=== PATIENT | female | born 1975 | race Caucasian/White ===

== ENCOUNTER 2021-02-28 09:50 | Outpatient (CLI) | payer OTHER | END 2021-02-28 09:51 | disposition home or self-care (01) | LOC: BICULT 09:50 | PROVIDERS: ATTEND Nurse Practitioner Family | DX: N32.81 Overactive bladder (principal); R32 Unspecified urinary incontinence; R82.90 Unspecified abnormal findings in urine; R82.79 Other abnormal findings on microbiological examination of urine; C53.9 Malignant neoplasm of cervix uteri, unspecified; R93.421 Abnormal radiologic findings on diagnostic imaging of right kidney; N32.89 Other specified disorders of bladder | CPT/HCPCS: 76770 ==

== ENCOUNTER 2021-08-13 11:29 | Emergency (ER) | payer OTHER, SELFPAY ==
[~2021-08-13 11:29] MED LIST: Iopamidol-370 76% 500 ML 1 ML ONE
[2021-08-13 12:54] LABS: #Eosinphils 0.1 thou/uL (0.0-0.7); #Lymphocytes 1.7 thou/uL (1.20-3.40); #Monocytes 0.6 thou/uL (0.11-0.59); #Neutrophils 7.7 thou/uL (1.40-6.50); %Basophils 0.2 % (0.0-1.0); %Eosinophils 1.2 % (0.0-10.0); %Lymphocytes 16.9 % (21.0-51.0); %Monocytes 5.7 % (0.0-10.0); %Neutrophils 76.1 % (42.0-75.0); Hemoglobin 11.5 g/dL (12.0-16.0); Mean Corpuscular HGB CONC 32.3 g/dL (32.0-36.0); Mean Corpuscular Volume 89.7 fL (78.0-98.0); Mean Platelet Volume 6.7 fL (7.4-10.4); Platelet Count 484 thou/uL (130-400); RBC Distribution Width 12.6 % (11.5-14.5); Red Blood Cell (RBC) Count 3.97 mill/uL (4.20-5.40); White Blood Cell (WBC) Count 10.1 thou/uL (4.8-10.8)
[2021-08-13 13:13] LABS: ALT (SGPT) 7 U/L (8-55); AST (SGOT) 7 U/L (5-34); Albumin 3.7 g/dL (3.5-5.0); Alkaline Phosphatase 85 U/L (40-110); Anion Gap 13 mmol/L (10-20); BUN (Urea Nitrogen) 14 mg/dL (7.0-18.7); Bilirubin, Total 0.2 mg/dL (0.2-1.2); Calc. Creatinine Clearance 0 mL/min (70-130); Calcium 9.6 mg/dL (7.8-10.44); Carbon Dioxide 17 mmol/L (22-29); Chloride 110 mmol/L (98-107); Globulin 3.2 g/dL (2.4-3.5); Glucose 90 mg/dL (70-105); Potassium 3.8 mmol/L (3.5-5.1); Protein, Total 6.9 g/dL (6.0-8.3); Sodium 136 mmol/L (136-145)
[2021-08-13] MEDS ORDERED: Hydrocortisone Acetate 25 MG Suppository PR SCH (13:15)
[2021-08-13 13:42] LABS: PTT 33.2 sec (22.9-36.1); Prothrombin Time 13.7 sec (12.0-14.7)
== END 2021-08-13 17:25 | disposition home or self-care (01) ==
LOC: ERS 11:29
DX: K62.5 Hemorrhage of anus and rectum (principal); R19.00 Intra-abdominal and pelvic swelling, mass and lump, unspecified site; Z87.891 Personal history of nicotine dependence
CPT/HCPCS: 36415; 74177; 80053; 85025; 85610; 85730; 86850; 86900; 86901; 93005; Q9967

== ENCOUNTER 2021-08-15 11:16 | Inpatient (IN) | payer SELFPAY ==
[2021-08-15] MEDS ORDERED: Ondansetron PF 4 MG/2 ML Vial ONE ×3 (12:13→16:16)
[2021-08-15] MEDS ORDERED: Morphine 4 MG/ML VIAL ONE (12:13)
[2021-08-15 12:26] LABS: #Eosinphils 0.2 thou/uL (0.0-0.7); #Lymphocytes 1.6 thou/uL (1.20-3.40); #Monocytes 0.7 thou/uL (0.11-0.59); #Neutrophils 8.5 thou/uL (1.40-6.50); %Basophils 0.4 % (0.0-1.0); %Eosinophils 1.8 % (0.0-10.0); %Lymphocytes 14.5 % (21.0-51.0); %Monocytes 6.3 % (0.0-10.0); Hemoglobin 10.8 g/dL (12.0-16.0); Mean Corpuscular HGB CONC 32.7 g/dL (32.0-36.0); Mean Corpuscular Hemoglobin 28.4 pg (27.0-31.0); Mean Corpuscular Volume 86.9 fL (78.0-98.0); Mean Platelet Volume 6.8 fL (7.4-10.4); Platelet Count 475 thou/uL (130-400); RBC Distribution Width 12.6 % (11.5-14.5)
[2021-08-15 12:45] LABS: ALT (SGPT) 8 U/L (8-55); AST (SGOT) 6 U/L (5-34); Albumin 3.6 g/dL (3.5-5.0); Alkaline Phosphatase 87 U/L (40-110); Anion Gap 15 mmol/L (10-20); BUN (Urea Nitrogen) 15 mg/dL (7.0-18.7); Bilirubin, Total 0.2 mg/dL (0.2-1.2); CK (CPK) 26 U/L (29-168); Calc. Creatinine Clearance 0 mL/min (70-130); Calcium 9.6 mg/dL (7.8-10.44); Carbon Dioxide 18 mmol/L (22-29); Chloride 110 mmol/L (98-107); Globulin 3.2 g/dL (2.4-3.5); Glucose 102 mg/dL (70-105); Potassium 3.5 mmol/L (3.5-5.1); Protein, Total 6.8 g/dL (6.0-8.3); Sodium 139 mmol/L (136-145)
[2021-08-15 13:07] LABS: Bacteria/HPF 4+ HPF (None Seen); Bilirubin Negative (Negative); Blood, Urine Trace (Negative); Clarity Extra Turbid (Clear); Glucose, Urine (Dipstick) Normal (Negative); Ketone, Urine Negative (Negative); Leukocyte 500 Leu/uL (Negative); Nitrite Negative (Negative); Protein, Urine (Dipstick) 600 mg/dL (Neg-Trace); Specific Gravity, Urine 1.019 (1.002-1.036); Squamous Epithelial 0-3 HPF (0-3); Urobilinogen Normal mg/dL (Less than 2); WBC/HPF Greater than 50 HPF (0-3)
[2021-08-15] MEDS ORDERED: Fentanyl 100 MCG/2 ML VIAL ONE ×2 (13:18→13:57)
[2021-08-15 13:56] LABS: SARS-CoV-2 NAA Rapid Test Not Detected (NotDetected)
[2021-08-15] MEDS ORDERED: Iothalamate Meglumine 60% 50 ML VIAL FS ONE (13:57)
[2021-08-15] MEDS ORDERED: Promethazine HCl 25 MG/ML VIAL ONE (13:57)
[2021-08-15] MEDS ORDERED: PHENYLEPHRINE-NS 100 MCG/ML 10 ML SYRINGE ONE (14:09)
[2021-08-15] MEDS ORDERED: Glycopyrrolate 0.2 MG/ML 5 ML SYRINGE ONE (14:09)
[2021-08-15] MEDS ORDERED: Lidocaine 1% PF 5 ML VIAL ONE (14:09)
[2021-08-15] MEDS ORDERED: Dexamethasone 20 MG/5 ML VIAL ONE (14:09)
[2021-08-15] MEDS ORDERED: PROPOFOL 200 MG/20 ML VIAL ONE (14:09)
[2021-08-15] MEDS ORDERED: Rocuronium Bromide 10 MG/ML (10ML VIAL) ONE (14:09)
[2021-08-15] MEDS ORDERED: Promethazine HCl 25 MG/ML VIAL IM PRN (16:16)
[2021-08-15] MEDS ORDERED: HYDROmorphone 2 MG/ML VIAL SLOW IVP PRN (16:16)
[2021-08-15] MEDS ORDERED: Promethazine HCl 25 MG/ML VIAL IVPB PRN (16:16)
[2021-08-15] MEDS ORDERED: Ondansetron HCl/PF 4 MG/2 ML Vial IVP PRN (16:16)
[2021-08-15] MEDS ORDERED: Ondansetron PF 4 MG/2 ML Vial IVP PRN (19:27)
[2021-08-15] MEDS ORDERED: Ondansetron ODT 4 MG TAB PO PRN (19:27)
[2021-08-15] MEDS ORDERED: Acetaminophen 325 MG TAB PO PRN (19:28)
[2021-08-15] MEDS: Morphine 4 MG/ML VIAL SLOW IVP PRN (20:58)
[2021-08-15] MEDS: cefTRIAXone\\ROCEPHIN 1 GM in Sodium Chloride 0.9% 100 ML IVPB SCH (20:59)
[2021-08-15 21:28] VITALS: BMI 28.4
[2021-08-15] MEDS ORDERED: Prevnar 13-Val Conj/PF 0.5 ML SYRINGE IM ONE (21:45)
[2021-08-16] MEDS: Morphine 4 MG/ML VIAL SLOW IVP PRN ×5 (01:35→20:23)
[2021-08-16 04:16] LABS: #Lymphocytes 1.2 thou/uL (1.20-3.40); #Monocytes 0.4 thou/uL (0.11-0.59); #Neutrophils 9.2 thou/uL (1.40-6.50); %Basophils 0.1 % (0.0-1.0); %Eosinophils 0.1 % (0.0-10.0); %Monocytes 4.1 % (0.0-10.0); %Neutrophils 84.8 % (42.0-75.0); Hemoglobin 9.6 g/dL (12.0-16.0); Mean Corpuscular HGB CONC 31.3 g/dL (32.0-36.0); Mean Corpuscular Hemoglobin 27.5 pg (27.0-31.0); Mean Platelet Volume 6.8 fL (7.4-10.4); Platelet Count 421 thou/uL (130-400); RBC Distribution Width 12.8 % (11.5-14.5); Red Blood Cell (RBC) Count 3.47 mill/uL (4.20-5.40); White Blood Cell (WBC) Count 10.8 thou/uL (4.8-10.8)
[2021-08-16 04:36] LABS: Anion Gap 12 mmol/L (10-20); BUN (Urea Nitrogen) 15 mg/dL (7.0-18.7); Calc. Creatinine Clearance 83 mL/min (70-130); Calcium 8.8 mg/dL (7.8-10.44); Carbon Dioxide 18 mmol/L (22-29); Chloride 110 mmol/L (98-107); Glucose 124 mg/dL (70-105); Potassium 3.7 mmol/L (3.5-5.1); Sodium 136 mmol/L (136-145)
[2021-08-16] MEDS ORDERED: Iopamidol 370 76% 100 ML VIAL ONE (09:42)
[2021-08-16] MEDS ORDERED: Iopamidol 300 61% 100 ML VIAL FS ONE (10:02)
[2021-08-16] MEDS: cefTRIAXone\\ROCEPHIN 1 GM in Sodium Chloride 0.9% 100 ML IVPB SCH (18:00)
[2021-08-17] MEDS: Morphine 4 MG/ML VIAL SLOW IVP PRN ×4 (01:58→18:07)
[2021-08-17 04:50] LABS: Thyroid Stimulating Hormone 3.3498 uIU/mL (0.35-4.94)
[2021-08-17] MEDS ORDERED: Folic Acid 1 MG TAB PO SCH (09:00)
[2021-08-17] MEDS: GoLYTELY 4,000 ml Bottle PO SCH (15:56)
[2021-08-17] MEDS: cefTRIAXone\\ROCEPHIN 1 GM in Sodium Chloride 0.9% 100 ML IVPB SCH (18:07)
[2021-08-17] MEDS ORDERED: Simethicone Chewable 80 MG TAB PO PRN (20:59)
[2021-08-17] MEDS ORDERED: Magnesium Citrate 300 ML BOT PO SCH (21:30)
[2021-08-18] MEDS: Morphine 4 MG/ML VIAL SLOW IVP PRN ×3 (02:49→18:20)
[2021-08-18] MEDS ORDERED: B & O 30 MG SUPP ONE (07:55)
[2021-08-18] MEDS ORDERED: Iothalamate Meglumine 60% 50 ML VIAL FS ONE (07:55)
[2021-08-18] MEDS ORDERED: Ketorolac Tromethamine 30 MG/ML VIAL IVP PRN (07:57)
[2021-08-18] MEDS ORDERED: Promethazine HCl 25 MG/ML VIAL IM PRN (07:57)
[2021-08-18] MEDS ORDERED: Promethazine HCl 25 MG/ML VIAL IVPB PRN (07:57)
[2021-08-18] MEDS ORDERED: Ondansetron HCl/PF 4 MG/2 ML Vial IVP PRN (07:57)
[2021-08-18] MEDS ORDERED: PACU-Morphine 4MG/ML VIAL SLOW IVP PRN (07:57)
[2021-08-18] MEDS ORDERED: Morphine Sulfate 2 MG/ML SYRINGE SLOW IVP PRN (07:57)
[2021-08-18] MEDS ORDERED: HYDROmorphone 2 MG/ML VIAL SLOW IVP PRN (07:57)
[2021-08-18] MEDS ORDERED: Meperidine HCl/PF 25 MG/ML VIAL SLOW IVP PRN (07:57)
[2021-08-18] MEDS ORDERED: Fentanyl 100 MCG/2 ML VIAL ONE ×2 (07:59→10:13)
[2021-08-18] MEDS ORDERED: Midazolam HCl 2 mg/2 ml Vial ONE (07:59)
[2021-08-18] MEDS ORDERED: SUGAMMADEX SODIUM 200 MG/2 ML VIAL ONE (08:08)
[2021-08-18] MEDS ORDERED: Succinylcholine 200 MG/10 ml SYRINGE FS ONE (08:31)
[2021-08-18] MEDS ORDERED: PROPOFOL 200 MG/20 ML VIAL ONE (08:31)
[2021-08-18] MEDS ORDERED: Ondansetron PF 4 MG/2 ML Vial ONE (08:31)
[2021-08-18] MEDS ORDERED: diphenhydrAMINE 50 MG/ML VIAL ONE (08:31)
[2021-08-18] MEDS ORDERED: Rocuronium Bromide 10 MG/ML (10ML VIAL) ONE (08:31)
[2021-08-18] MEDS ORDERED: Lidocaine 2% PF 5 ML VIAL ONE (08:31)
[2021-08-18] MEDS ORDERED: Dexamethasone 20 MG/5 ML VIAL ONE (08:31)
[2021-08-18] MEDS: Folic Acid 1 MG TAB PO SCH (09:00)
[2021-08-18] MEDS: GoLYTELY 4,000 ml Bottle PO SCH (12:01)
[2021-08-18] MEDS ORDERED: Mineral Oil ENEMA PR SCH ×2 (13:00→15:00)
[2021-08-18] MEDS: cefTRIAXone\\ROCEPHIN 1 GM in Sodium Chloride 0.9% 100 ML IVPB SCH (18:21)
[2021-08-19] MEDS: Morphine 4 MG/ML VIAL SLOW IVP PRN ×5 (01:41→22:36)
[2021-08-19 05:55] LABS: Anion Gap 11 mmol/L (10-20); BUN (Urea Nitrogen) 16 mg/dL (7.0-18.7); Calc. Creatinine Clearance 114 mL/min (70-130); Calcium 8.3 mg/dL (7.8-10.44); Carbon Dioxide 27 mmol/L (22-29); Chloride 105 mmol/L (98-107); Glucose 109 mg/dL (70-105); Potassium 3.5 mmol/L (3.5-5.1); Sodium 139 mmol/L (136-145)
[2021-08-19] MEDS: Folic Acid 1 MG TAB PO SCH (08:30)
[2021-08-19] MEDS: cefTRIAXone\\ROCEPHIN 1 GM in Sodium Chloride 0.9% 100 ML IVPB SCH (17:48)
[2021-08-19] MEDS: Polyethylene Glycol 3350 17 GM Packet PO SCH (20:32)
[2021-08-20] MEDS: Morphine 4 MG/ML VIAL SLOW IVP PRN ×3 (02:53→11:53)
[2021-08-20] MEDS: Folic Acid 1 MG TAB PO SCH (07:21)
[2021-08-20] MEDS: Polyethylene Glycol 3350 17 GM Packet PO SCH (07:59)
[2021-08-20 08:05] VITALS: BP 115/68; TEMP 96.6
[2021-08-20 11:35] LABS: Hemoglobin 10.4 g/dL (12.0-16.0)
== END 2021-08-20 16:11 | disposition home or self-care (01) | DRG 669 ==
LOC: ERS 11:16 → ERHOLD 12:28 → ONC 17:58
PROVIDERS: ADMIT Internal Medicine; ATTEND Family Medicine
PROC: 0UBG8ZX Excision of Vagina, Via Natural or Artificial Opening Endoscopic, Diagnostic (ICD-10-PCS; 2021-08-15)
PROC: 0TJB8ZZ Inspection of Bladder, Via Natural or Artificial Opening Endoscopic (ICD-10-PCS; 2021-08-15)
PROC: 0T9430Z Drainage of Left Kidney Pelvis with Drainage Device, Percutaneous Approach (ICD-10-PCS; 2021-08-15)
PROC: 0T9330Z Drainage of Right Kidney Pelvis with Drainage Device, Percutaneous Approach (ICD-10-PCS; 2021-08-15)
PROC: 0T9430Z Drainage of Left Kidney Pelvis with Drainage Device, Percutaneous Approach (ICD-10-PCS; 2021-08-17)
PROC: 0T9330Z Drainage of Right Kidney Pelvis with Drainage Device, Percutaneous Approach (ICD-10-PCS; 2021-08-17)
PROC: 0TBB7ZZ Excision of Bladder, Via Natural or Artificial Opening (ICD-10-PCS; principal; 2021-08-18)
PROC: 0DJD8ZZ Inspection of Lower Intestinal Tract, Via Natural or Artificial Opening Endoscopic (ICD-10-PCS; 2021-08-18)
DX: C67.9 Malignant neoplasm of bladder, unspecified (principal); N82.0 Vesicovaginal fistula; N17.9 Acute kidney failure, unspecified; N13.1 Hydronephrosis with ureteral stricture, not elsewhere classified; K62.6 Ulcer of anus and rectum; D64.9 Anemia, unspecified; N89.8 Other specified noninflammatory disorders of vagina; Z20.822 Contact with and (suspected) exposure to COVID-19; K59.00 Constipation, unspecified; Z92.21 Personal history of antineoplastic chemotherapy; Z92.3 Personal history of irradiation; Z88.8 Allergy status to other drugs, medicaments and biological substances; Z85.41 Personal history of malignant neoplasm of cervix uteri; Z90.710 Acquired absence of both cervix and uterus
CPT/HCPCS: 36415; 50430; 50431; 50432; 51702; 71045; 71260; 74420; 78306; 80048; 80053; 81015; 82378; 82550; 82607; 82746; 83605; 84443; 85014; 85018; 85025; 86304; 86850; 86900; 86901; 87086; 88305; 88341; 88342; 93005; 96365; 96375; A9503; C1729; J0696; J1100; J1200; J1956; J2001; J2250; J2270; J2405; J2550; J2704; J3010; J3490; Q9961; Q9967; U0002

== ENCOUNTER 2021-08-28 20:33 | Emergency (ER) | payer SELFPAY ==
[2021-08-28 22:12] LABS: #Basophils 0.1 thou/uL (0.0-0.2); #Eosinphils 0.3 thou/uL (0.0-0.7); #Lymphocytes 1.9 thou/uL (1.20-3.40); #Monocytes 0.7 thou/uL (0.11-0.59); %Basophils 0.7 % (0.0-1.0); %Eosinophils 2.7 % (0.0-10.0); %Lymphocytes 15.8 % (21.0-51.0); %Monocytes 5.5 % (0.0-10.0); %Neutrophils 75.4 % (42.0-75.0); Bacteria/HPF 1+ HPF (None Seen); Bilirubin Negative (Negative); Blood, Urine 1+ (Negative); Clarity Clear (Clear); Glucose, Urine (Dipstick) Normal (Negative); Hemoglobin 11.3 g/dL (12.0-16.0); Ketone, Urine Negative (Negative); Leukocyte 250 Leu/uL (Negative); Mean Corpuscular HGB CONC 32.9 g/dL (32.0-36.0); Mean Corpuscular Hemoglobin 29.1 pg (27.0-31.0); Mean Corpuscular Volume 88.5 fL (78.0-98.0); Nitrite Negative (Negative); Platelet Count 564 thou/uL (130-400); Protein, Urine (Dipstick) 10 mg/dL (Neg-Trace); RBC Distribution Width 13.7 % (11.5-14.5); RBC/HPF 0-3 HPF (0-3); Red Blood Cell (RBC) Count 3.89 mill/uL (4.20-5.40); Specific Gravity, Urine 1.007 (1.002-1.036); Squamous Epithelial None Seen HPF (0-3); Urobilinogen Normal mg/dL (Less than 2); pH, Urine 5.5 (5.0-9.0)
[2021-08-28 22:17] LABS: BHCG - Serum Negative (NEGATIVE); Pregs Control Background? CLEAR/WHITE (CLR/WHITE); Pregs Control Bar Appear? YES (CONTROL BAR)
[2021-08-28] MEDS ORDERED: Morphine 4 MG/ML VIAL ONE (22:21)
[2021-08-28] MEDS ORDERED: Ondansetron PF 4 MG/2 ML Vial ONE (22:21)
[2021-08-28 22:32] LABS: ALT (SGPT) 13 U/L (8-55); AST (SGOT) 13 U/L (5-34); Albumin 3.9 g/dL (3.5-5.0); Alkaline Phosphatase 94 U/L (40-110); Anion Gap 17 mmol/L (10-20); BUN (Urea Nitrogen) 13 mg/dL (7.0-18.7); Bilirubin, Total 0.2 mg/dL (0.2-1.2); Calc. Creatinine Clearance 0 mL/min (70-130); Carbon Dioxide 21 mmol/L (22-29); Chloride 104 mmol/L (98-107); Globulin 4.3 g/dL (2.4-3.5); Glucose 105 mg/dL (70-105); Potassium 3.9 mmol/L (3.5-5.1); Protein, Total 8.2 g/dL (6.0-8.3); Sodium 138 mmol/L (136-145)
== END 2021-08-29 00:24 | disposition home or self-care (01) ==
LOC: ERS 20:33
DX: N39.0 Urinary tract infection, site not specified (principal); N93.9 Abnormal uterine and vaginal bleeding, unspecified; C53.9 Malignant neoplasm of cervix uteri, unspecified
CPT/HCPCS: 80053; 81003; 81015; 83605; 84703; 85025; 96374; 96375; J2270; J2405

== ENCOUNTER 2021-09-10 08:19 | Day surgery (SDC) | payer OTHER, SELFPAY ==
[2021-09-07 15:28] VITALS: BMI 27.6
[~2021-09-10 08:19] MED LIST changes: +FLU VACC QS2021-22(6MOS UP)/PF 60 MCG/0.5 ML SYRINGE IM ONE; -Iopamidol-370 76% 500 ML 1 ML ONE
[2021-09-10] MEDS ORDERED: Sodium Chloride 0.9% 20 ML ONE (09:32)
[2021-09-10] MEDS ORDERED: Fentanyl 100 MCG/2 ML VIAL ONE (09:32)
[2021-09-10] MEDS ORDERED: Iopamidol 300 61% 50 ML VIAL FS ONE (09:46)
[2021-09-10 12:20] VITALS: BP 121/82; TEMP 98.8
== END 2021-09-10 11:50 | disposition home or self-care (01) ==
LOC: SPEC 08:19
PROVIDERS: ATTEND Urology
PROC: 0T25X0Z Change Drainage Device in Kidney, External Approach (ICD-10-PCS; principal; 2021-09-10)
DX: N13.1 Hydronephrosis with ureteral stricture, not elsewhere classified (principal); F17.200 Nicotine dependence, unspecified, uncomplicated; N82.8 Other female genital tract fistulae; Z85.41 Personal history of malignant neoplasm of cervix uteri; Z85.51 Personal history of malignant neoplasm of bladder; Z79.2 Long term (current) use of antibiotics
CPT/HCPCS: 50431; 50436; 90471; 90686; C1729; G0008; J3010; Q9967

== ENCOUNTER 2021-09-25 09:10 | Outpatient (CLI) | payer OTHER, SELFPAY | END 2021-09-25 09:11 | disposition home or self-care (01) | LOC: PET 09:10 | PROVIDERS: ATTEND Internal Medicine Hematology & Oncology | DX: C53.9 Malignant neoplasm of cervix uteri, unspecified (principal) | CPT/HCPCS: 78815; A9552 ==

== ENCOUNTER 2021-10-09 08:30 | Day surgery (SDC) | payer OTHER ==
[~2021-10-09 08:30] MED LIST changes: +CARBOplatin 550 MG in Sodium Chloride 0.9% 250 ML 250 ML IVPB SCH; +Dexamethasone Sod Phosphate 20 MG in Sodium Chloride 0.9% 50 ML IVPB SCH; -FLU VACC QS2021-22(6MOS UP)/PF 60 MCG/0.5 ML SYRINGE IM ONE; +Famotidine/PF 20 MG in Sodium Chloride 0.9% 50 ML IVPB SCH; +PACLITAXEL IVPB SCH; +PALONOSETRON HCL 0.05 MG/ML 5 ML VIAL IVP SCH; +Pembrolizumab 200 MG in Sodium Chloride 0.9% 250 ML 250 ML IV SCH; +SODIUM CHLORIDE 0.9% IVPB SCH; +diphenhydrAMINE 50 MG in Sodium Chloride 0.9% 50 ML IVPB SCH
[2021-10-09] MEDS ORDERED: Famotidine/PF 20 mg/2ml Vial SLOW IVP SCH (09:00)
[2021-10-09] MEDS ORDERED: Ferumoxytol (ERSD) 510 MG in Sodium Chloride 0.9% 150 ML IVPB SCH (09:00)
[2021-10-09] MEDS ORDERED: SODIUM CHLORIDE 0.9% IVPB SCH (09:15)
[2021-10-09] MEDS ORDERED: CARBOPLATIN IVPB SCH (09:15)
[2021-10-09] MEDS ORDERED: Sodium Chloride 0.9% 20 ML ONE (09:24)
[2021-10-09 09:55] VITALS: BP 114/72
== END 2021-10-09 16:46 | disposition home or self-care (01) ==
LOC: ONC/OP 08:30
PROVIDERS: ATTEND Internal Medicine Hematology & Oncology
DX: Z51.11 Encounter for antineoplastic chemotherapy (principal); C53.0 Malignant neoplasm of endocervix
CPT/HCPCS: 96367; 96375; 96413; 96415; 96417; J1100; J1200; J1642; J2469; J3490; J7030; J7050; J9045; J9267; Q0139; S0028

== ENCOUNTER 2021-11-02 08:27 | Day surgery (SDC) | payer OTHER ==
[~2021-11-02 08:27] MED LIST changes: +CARBOPLATIN IVPB SCH; -CARBOplatin 550 MG in Sodium Chloride 0.9% 250 ML 250 ML IVPB SCH; -Famotidine/PF 20 MG in Sodium Chloride 0.9% 50 ML IVPB SCH; +Famotidine/PF 20 mg/2ml Vial SLOW IVP SCH
[2021-11-02] MEDS ORDERED: Sodium Chloride 0.9% 10 ML ONE (08:49)
[2021-11-02] MEDS ORDERED: SODIUM CHLORIDE 0.9% IVPB SCH (09:15)
[2021-11-02] MEDS ORDERED: CARBOPLATIN IVPB SCH (09:15)
[2021-11-02 09:37] VITALS: BP 109/61
[2021-11-02] MEDS ORDERED: PALONOSETRON HCL 0.05 MG/ML 5 ML VIAL ONE (09:43)
[2021-11-02] MEDS ORDERED: Famotidine/PF 20 mg/2ml Vial ONE (09:44)
== END 2021-11-02 17:03 | disposition home or self-care (01) ==
LOC: ONC/OP 08:27
PROVIDERS: ATTEND Internal Medicine Hematology & Oncology
DX: Z51.11 Encounter for antineoplastic chemotherapy (principal); C53.0 Malignant neoplasm of endocervix
CPT/HCPCS: 96375; 96413; 96415; 96417; J1100; J1200; J1642; J2469; J7030; J7050; J9045; J9267; S0028

== ENCOUNTER 2021-11-05 07:41 | Day surgery (SDC) | payer OTHER ==
[2021-10-30 12:46] VITALS: BMI 26.2
[2021-11-05 09:42] VITALS: BP 100/63
== END 2021-11-05 09:35 | disposition home or self-care (01) ==
LOC: SPEC 07:41
PROVIDERS: ATTEND Urology
PROC: 0T25X0Z Change Drainage Device in Kidney, External Approach (ICD-10-PCS; principal; 2021-11-05)
DX: N13.5 Crossing vessel and stricture of ureter without hydronephrosis (principal); C53.8 Malignant neoplasm of overlapping sites of cervix uteri; Z79.899 Other long term (current) drug therapy
CPT/HCPCS: 50431; 50436; C1729

== ENCOUNTER 2021-11-23 08:35 | Day surgery (SDC) | payer OTHER ==
[~2021-11-23 08:35] MED LIST changes: +Famotidine/PF 20 MG in Sodium Chloride 0.9% 50 ML IVPB SCH; -Famotidine/PF 20 mg/2ml Vial SLOW IVP SCH; -PALONOSETRON HCL 0.05 MG/ML 5 ML VIAL IVP SCH; +Palonosetron HCl 0.25 MG in Sodium Chloride 0.9% 50 ML IVPB SCH
[2021-11-23] MEDS ORDERED: Sodium Chloride 0.9% 10 ML ONE ×2 (08:52)
[2021-11-23] MEDS ORDERED: PALONOSETRON HCL 0.05 MG/ML 5 ML VIAL ONE (08:52)
[2021-11-23 13:12] VITALS: BP 125/57; TEMP 97.6
== END 2021-11-23 18:01 | disposition home or self-care (01) ==
LOC: ONC/OP 08:35
PROVIDERS: ATTEND Internal Medicine Hematology & Oncology
DX: Z51.11 Encounter for antineoplastic chemotherapy (principal); C53.0 Malignant neoplasm of endocervix
CPT/HCPCS: 96375; 96411; 96413; 96415; J1100; J1200; J1642; J2469; J7030; J7050; J9045; J9267; S0028

== ENCOUNTER 2021-12-04 07:40 | Day surgery (SDC) | payer OTHER ==
[2021-12-03 13:12] VITALS: BMI 24.3
[2021-12-04] MEDS ORDERED: FLU VACC QS2021-22(6MOS UP)/PF 60 MCG/0.5 ML SYRINGE IM ONE (09:00)
[2021-12-04] MEDS ORDERED: Iopamidol 300 61% 50 ML VIAL FS ONE (12:14)
== END 2021-12-04 09:55 | disposition home or self-care (01) ==
LOC: SPEC 07:40
PROVIDERS: ATTEND Urology
PROC: 0T25X0Z Change Drainage Device in Kidney, External Approach (ICD-10-PCS; principal; 2021-12-04)
DX: C53.9 Malignant neoplasm of cervix uteri, unspecified (principal); N13.1 Hydronephrosis with ureteral stricture, not elsewhere classified
CPT/HCPCS: 50431; 50436; C1729

== ENCOUNTER 2021-12-14 10:37 | Day surgery (SDC) | payer OTHER ==
[~2021-12-14 10:37] MED LIST changes: +Famotidine/PF 20 mg/2ml Vial SLOW IVP SCH; +PALONOSETRON HCL 0.05 MG/ML 5 ML VIAL IVP SCH; +diphenhydrAMINE 50 MG/ML VIAL IVP PRN
[2021-12-14] MEDS ORDERED: PALONOSETRON HCL 0.05 MG/ML 5 ML VIAL ONE (11:42)
[2021-12-14] MEDS ORDERED: diphenhydrAMINE 50 MG/ML VIAL ONE (12:13)
[2021-12-14] MEDS ORDERED: Famotidine/PF 20 mg/2ml Vial ONE (12:14)
[2021-12-14] MEDS ORDERED: diphenhydrAMINE 50 MG/ML VIAL IVP SCH (12:15)
[2021-12-14 14:45] VITALS: BP 101/57; TEMP 97.6
== END 2021-12-14 16:02 | disposition home or self-care (01) ==
LOC: ONC/OP 10:37
PROVIDERS: ATTEND Internal Medicine Hematology & Oncology
DX: Z51.11 Encounter for antineoplastic chemotherapy (principal); C53.0 Malignant neoplasm of endocervix
CPT/HCPCS: 96375; 96413; 96415; 96417; J1100; J1200; J1642; J2469; J7030; J7050; J9045; J9267; S0028

== ENCOUNTER 2021-12-19 13:00 | Day surgery (SDC) | payer OTHER ==
[~2021-12-19 13:00] MED LIST changes: -CARBOPLATIN IVPB SCH; -Dexamethasone Sod Phosphate 20 MG in Sodium Chloride 0.9% 50 ML IVPB SCH; -Famotidine/PF 20 MG in Sodium Chloride 0.9% 50 ML IVPB SCH; -Famotidine/PF 20 mg/2ml Vial SLOW IVP SCH; -PACLITAXEL IVPB SCH; -PALONOSETRON HCL 0.05 MG/ML 5 ML VIAL IVP SCH; -Palonosetron HCl 0.25 MG in Sodium Chloride 0.9% 50 ML IVPB SCH; -SODIUM CHLORIDE 0.9% IVPB SCH; -diphenhydrAMINE 50 MG in Sodium Chloride 0.9% 50 ML IVPB SCH; -diphenhydrAMINE 50 MG/ML VIAL IVP PRN
[2021-12-19] MEDS ORDERED: Sodium Chloride 0.9% 10 ML ONE (13:04)
[2021-12-19 13:50] VITALS: BP 99/66
== END 2021-12-19 15:03 | disposition home or self-care (01) ==
LOC: ONC/OP 13:00
PROVIDERS: ATTEND Internal Medicine Hematology & Oncology
DX: Z51.12 Encounter for antineoplastic immunotherapy (principal); C53.0 Malignant neoplasm of endocervix
CPT/HCPCS: 96413; J1642